=== PATIENT | male | born 1950 ===

== ENCOUNTER → 2019-05-21 | Outpatient (CLI) | payer OTHER ==
[~2019-05-21] VITALS: Ht 172.7 cm; Wt 70.3 kg
[~2019-05-21] MED LIST: albuterol 2.5 MG/3 ML nebule ONE
== END | disposition home or self-care (01) ==
LOC: RT 06:54
PROVIDERS: ATTEND Orthopaedic Surgery
DX: C34.90 Malignant neoplasm of unspecified part of unspecified bronchus or lung (principal)
CPT/HCPCS: 94060; 94760